=== PATIENT | female | born 1970 | race Caucasian/White ===

== ENCOUNTER 2022-11-29 16:52 | Emergency (ER) | payer BC ==
[~2022-11-29] VITALS: Ht 167.6 cm; Wt 73.5 kg
[2022-11-29 17:53] LABS: BASOPHILS # (AUTO) 0.03 K/uL (0.00-0.20); BASOPHILS % (AUTO) 0.3 % (0.0-5.0); EOSINOPHILS # (AUTO) 0.09 K/uL (0.00-0.70); EOSINOPHILS % (AUTO) 0.9 % (0.0-8.0); HEMATOCRIT 40.5 % (36-48); IMMATURE GRANULOCYTE ABSOLUTE 0.02 K/uL (0-1); LYMPHOCYTES # (AUTO) 1.8 K/uL (1.0-4.8); LYMPHOCYTES % (AUTO) 19.3 % (21.0-51.0); MEAN CORPUSCULAR HEMOGLOBIN 32.6 pg (27.0-33.0); MEAN CORPUSCULAR HGB CONC 34.6 g/dL (32.0-36.0); MEAN CORPUSCULAR VOLUME 94.4 fL (79-99); MONOCYTES # (AUTO) 0.6 K/uL (0.1-1.0); MONOCYTES % (AUTO) 6.3 % (3.0-13.0); NEUTROPHILS # (AUTO) 6.9 K/uL (1.8-7.7); PLATELET COUNT (AUTO) 329 K/uL (130-400); RED BLOOD CELL COUNT(AUTO) 4.29 MIL/uL (4.00-5.50); RED CELL DISTRIBUTION WIDTH 12.5 % (11.0-15.5); WHITE BLOOD COUNT (AUTO) 9.5 K/uL (4.8-10.8)
[2022-11-29 17:58] LABS: CREATININE 0.8 mg/dL (0.5-1.5)
[2022-11-29 18:07] LABS: ALBUMIN 4.3 g/dL (3.5-5.0); BILIRUBIN,TOTAL 2.1 mg/dL (0.2-1.0); TOTAL PROTEIN, SERUM 8.2 g/dL (6.0-8.3)
[2022-11-29 19:47] LABS: APPEARANCE,URINE CLEAR (CLEAR); BILIRUBIN,URINE NEGATIVE (NEGATIVE); COLOR,URINE COLORLESS (YELLOW); GLUCOSE, URINE (UA) NEGATIVE (NEGATIVE); KETONES,URINE 10 mg/dL (NEGATIVE); LEUKOCYTE ESTERASE ,URINE NEGATIVE Leu/uL (NEGATIVE); NITRATE,URINE NEGATIVE (NEGATIVE); OCCULT BLOOD,URINE NEGATIVE (NEGATIVE); PH,URINE 5.5 (5.0-8.0); PROTEIN,URINE NEGATIVE (NEGATIVE); UROBILINOGEN,URINE 0.2 mg/dL (0.2-1.0)
[2022-11-29 19:48] LABS: ADD UA MICROSCOPIC YES
[2022-11-29 19:50] LABS: HCG,QUALITATIVE URINE NEGATIVE (NEGATIVE)
[2022-11-29 19:51] LABS: BACTERIA,URINE RARE /HPF (None Seen); SQUAMOUS EPITHELIAL CELL,UR RARE /HPF (0-2)
[2022-11-29] MEDS ORDERED: METOPROLOL TARTRATE 1 MG/ML 5ML VIAL IV ONE (20:00)
[2022-11-29] MEDS ORDERED: HYDRALAZINE 20MG/ML VIAL ONE (20:34)
[2022-11-29] MEDS ORDERED: HYDRALAZINE 20MG/ML VIAL IV SCH (21:00)
[2022-11-29 22:19] VITALS: BP 148/99; PULSE 87; RESP 18; O2SAT 99
[2022-11-29] MEDS ORDERED: LISI10TA24 PO (22:36)
[2022-11-29] MEDS ORDERED: LISI5TAB21 PO (22:36)
== END 2022-11-29 23:10 | disposition home or self-care (01) ==
LOC: EDH 16:52
DX: I10 Essential (primary) hypertension (principal); R00.2 Palpitations; F41.9 Anxiety disorder, unspecified
CPT/HCPCS: 99284; 96374; 71045; 96375; 84484; 80053; 85025; 81001; 81025; 36415; 93005; J3490; J0360